=== PATIENT | male | born 1945 | race Hispanic/Latino ===

== ENCOUNTER 2020-12-13 19:12 | Emergency (ER) | payer OTHER ==
[~2020-12-13] VITALS: Ht 172.7 cm; Wt 79.4 kg
[2020-12-13] MEDS ORDERED: TETANUS/DIPHTHERIA TOX ADULT 0.5 ML SYR IM ONE (20:15)
[2020-12-13] MEDS ORDERED: AUGMENTIN 875-1 EACH PO (22:29)
== END 2020-12-13 22:31 | disposition home or self-care (01) ==
LOC: ER 20:16
DX: S61.217A Laceration without foreign body of left little finger without damage to nail, initial encounter (principal); W29.3XXA Contact with powered garden and outdoor hand tools and machinery, initial encounter; Y93.H2 Activity, gardening and landscaping; Y92.007 Garden or yard of unspecified non-institutional (private) residence as the place of occurrence of the external cause
CPT/HCPCS: 90714; 99283